=== PATIENT | female | born 1955 | race Caucasian/White ===

== ENCOUNTER 2020-07-28 12:56 | Emergency (ER) | payer MEDICARE, OTHER ==
[~2020-07-28] VITALS: Ht 160 cm; Wt 59.9 kg
--- NOTE | 2020-07-28 13:18 | NUR ---
munira from [facility] to er bed 7. aaox4. not in resp distress. ambulatory. came in for lower abd pain x 3 days. pt rates pain 6/10 wrapping around. pt reports taking tylenol but with minimal relief. 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 urine collected. awaiting for
[2020-07-28 13:31] LABS: BASOPHILS # (AUTO) 0.1 /CMM (0.0-0.2); BASOPHILS % (AUTO) 1.1 % (0.0-2.0); HEMATOCRIT 32 % (33-45); HEMOGLOBIN 10.2 g/dL (11.5-14.8); LYMPHOCYTES # (AUTO) 1.4 /CMM (0.8-4.8); MEAN CORPUSCULAR HGB CONC 32 g/dl (31.0-36.0); MEAN CORPUSCULAR VOLUME 78 fL (82-100); MONOCYTES # (AUTO) 0.5 /CMM (0.1-1.30); MONOCYTES % (AUTO) 3.7 % (2.0-12.0); NEUTROPHILS # (AUTO) 10.9 /CMM (1.8-8.9); NEUTROPHILS % (AUTO) 83.2 % (43.0-81.0); PLATELET COUNT (AUTO) 209 /CMM (150-450); RED BLOOD CELL COUNT(AUTO) 4.07 MIL/uL (4.0-5.2); WHITE BLOOD COUNT (AUTO) 13.1 K/uL (4.3-11.0)
--- NOTE | 2020-07-28 13:36 | NUR ---
urine sent to lab, iv line established on r hand 20g, blood drawn and given to laborer [place]. pt is also enroute to ct on [place]
[2020-07-28 13:40] LABS: CALCIUM, SERUM 9.2 mg/dL (8.5-10.1); CREATININE 1.2 mg/dL (0.6-1.3); POTASSIUM 3.6 mmol/L (3.5-5.1)
[2020-07-28 13:46] LABS: BILIRUBIN,URINE Negative (NEGATIVE); COLOR,URINE LIGHT YELLOW (YELLOW); LEUKOCYTE ESTERASE ,URINE Negative (NEGATIVE); NITRITE, URINE Negative (NEGATIVE); PH,URINE 6.5 (5.0-8.0); PROTEIN,URINE 100 mg/dl (NEGATIVE); UGLUCOSE Negative (NEGATIVE); UROBILINOGEN,URINE 0.2 EU/dL (0.2)
[2020-07-28 13:47] LABS: ALBUMIN 3.2 g/dL (3.4-5.0); BILIRUBIN,TOTAL 0.1 mg/dL (0.2-1.0); TOTAL PROTEIN, SERUM 6.8 g/dL (6.4-8.2)
[2020-07-28 13:59] LABS: BACTERIA,URINE Rare /HPF (None Seen); SQUAMOUS EPITHELIAL CELL,UR Few /HPF (None Seen); WBC,URINE NONE SEEN /HPF (0-3)
[2020-07-28] MEDS ORDERED: IOHEXOL-300 100 ML VIAL IV ONE (14:17)
[2020-07-28] MEDS ORDERED: IV NS 0.9% 0 ML IV ONE (14:17)
[2020-07-28] MEDS ORDERED: ACET-907 PO (14:29)
[2020-07-28] MEDS ORDERED: MORPHINE SULFATE INJ 2 MG/ML DISP.SYRIN ONE (14:45)
[2020-07-28] MEDS ORDERED: ONDANSETRON HCL/PF 4 MG/2 ML VIAL ONE (14:45)
[2020-07-28] MEDS ORDERED: ONDANSETRON HCL/PF 4 MG/2 ML VIAL IV ONE (15:00)
[2020-07-28] MEDS ORDERED: MORPHINE SULFATE INJ 2 MG/ML DISP.SYRIN IV ONE (15:00)
--- NOTE | 2020-07-28 15:35 | NUR ---
TRANSPORT [facility] ETA 1600
--- NOTE | 2020-07-28 15:54 | NUR ---
[facility] pt is in stabe condition. pt ambulated from bed to [facility]
[2020-07-28 15:57] VITALS: BP 144/91
== END 2020-07-28 15:57 | disposition home or self-care (01) ==
LOC: ER 13:01
DX: G89.18 Other acute postprocedural pain (principal); R10.30 Lower abdominal pain, unspecified; K21.9 Gastro-esophageal reflux disease without esophagitis; F41.9 Anxiety disorder, unspecified; Z93.3 Colostomy status
CPT/HCPCS: 36415; 74176; 80048; 80076; 81001; 83690; 85025; 87086; 96374; 96375; 99284; J2270; J2405; J7050; Q9967